=== PATIENT | male | born 1945 | race Caucasian/White ===

== ENCOUNTER → 2020-11-26 | Outpatient (CLI) | payer OTHER ==
[2020-11-27 09:26] LABS: Stool Occult Bld Immuno 1 Negative (NEGATIVE)
== END | disposition home or self-care (01) ==
LOC: LAB 10:30 → LAB SHORT 10:30
PROVIDERS: Family Medicine
DX: Z12.11 Encounter for screening for malignant neoplasm of colon (principal)
CPT/HCPCS: G0328

== ENCOUNTER → 2022-05-25 | Outpatient (CLI) | payer OTHER ==
[~2022-05-25] MED LIST: Avastin25 MG/ML RIGHTEYE; Carvedilol12.5 MG PO; DOCU100 PO; EYLEA LEFTEYE; LOSARTAN POTAS100 M1 PO; MELA3 PO; MULVITA PO; NEURONTIN600 MG PO; NITR.4SL SL; Norco 5-325 Ta1 EACH PO; PRESERVISION A1 EAC2 PO; Preservision S1 EACH PO; VITAMIN D325 MC3 PO
[2022-05-25 11:52] LABS: Hematocrit 28.2 % (37.0-53.0); Hemoglobin 8.1 g/dL (13.5-17.5); Mean Corpuscular HGB Conc 28.7 g/dL (31.5-36.5); Mean Corpuscular Volume 94 fL (80-100); NRBC ABSOLUTE 0.37 K/mm3 (0.00-0.02); NRBC Auto 16.7 /100 WBC (0.0-0.2); RDW Coefficient Variation 17.9 % (11.7-14.2); RDW Standard Deviation 59.1 fL (35.1-46.3); White Blood Cell Count 2.21 K/mm3 (4.00-11.30)
[2022-05-25 11:58] LABS: Platelet Count 7 K/mm3 (150-400)
[2022-05-25 12:45] LABS: BAND PERCENT MAN 1 % (0-8); BASOPHILS PERCENT MAN 0 % (0-2); BLASTS PERCENT MAN 1 % (0-0); EOSINOPHILS PERCENT MAN 0 % (0-6); LYMPHOCYTES % ATYPICAL MANUAL 1 % (0-0); LYMPHOCYTES ABSOLUTE MAN 1.03 K/mm3 (0.84-5.20); LYMPHOCYTES PERCENT MAN 46 % (21-46); MONOCYTES ABSOLUTE MAN 0.08 K/mm3 (0.16-1.47); MONOCYTES PERCENT MAN 4 % (4-13); NEUTROPHILS ABSOLUTE MAN 1.06 K/mm3 (1.96-9.15); SEG NEUTROPHILS PERCENT MAN 47 % (41-73); TOTAL CELLS COUNTED 100
[2022-05-25 13:01] LABS: Albumin, Blood 3.3 g/dL (3.4-5.0); Bilirubin, Total 0.7 mg/dL (0.1-1.0); Bun/Creatinine Ratio 18.4 (12.0-20.0); Calcium, Blood 8.6 mg/dL (8.5-10.1); Creatinine, Blood 1.25 mg/dL (0.60-1.20); Globulin, Blood 3.2 g/dL (2.2-4.0); Total Protein, Blood 6.5 g/dL (6.4-8.2)
== END | disposition home or self-care (01) ==
LOC: LAB SHORT 11:14
PROVIDERS: Nurse Practitioner
DX: C92.00 Acute myeloblastic leukemia, not having achieved remission (principal); D63.0 Anemia in neoplastic disease; D69.6 Thrombocytopenia, unspecified
CPT/HCPCS: 80053; 85025

== ENCOUNTER 2022-05-26 11:15 | Day surgery (SDC) | payer OTHER | END 2022-05-26 17:02 | disposition home or self-care (01) | LOC: ATC 11:15 | DX: D69.6 Thrombocytopenia, unspecified (principal); C92.00 Acute myeloblastic leukemia, not having achieved remission | CPT/HCPCS: 36430; 86900; 86901; A9270; J7040; P9053 ==

== ENCOUNTER 2022-05-31 00:40 | Day surgery (SDC) | payer OTHER ==
[2022-05-30 11:09] LABS: Hematocrit 25.8 % (37.0-53.0); Hemoglobin 7.5 g/dL (13.5-17.5); Mean Corpuscular HGB 27.4 pg (26.0-34.0); Mean Corpuscular HGB Conc 29.1 g/dL (31.5-36.5); Mean Corpuscular Volume 94 fL (80-100); NRBC ABSOLUTE 0.29 K/mm3 (0.00-0.02); NRBC Auto 31.2 /100 WBC (0.0-0.2); RDW Coefficient Variation 18.5 % (11.7-14.2); RDW Standard Deviation 61.1 fL (35.1-46.3); Red Blood Cell Count 2.74 M/mm3 (4.30-5.90)
[2022-05-30 11:20] LABS: White Blood Cell Count 0.93 K/mm3 (4.00-11.30)
[2022-05-30 11:21] LABS: Platelet Count 10 K/mm3 (150-400)
[2022-05-30 11:35] LABS: Albumin, Blood 3.1 g/dL (3.4-5.0); Albumin/Globulin Ratio 1.1 (0.8-1.8); Bilirubin, Total 0.7 mg/dL (0.1-1.0); Calcium, Blood 8.6 mg/dL (8.5-10.1); Creatinine, Blood 1.19 mg/dL (0.60-1.20); Globulin, Blood 2.8 g/dL (2.2-4.0); Potassium, Blood 4.4 mmol/L (3.5-5.5); Total Protein, Blood 5.9 g/dL (6.4-8.2)
[2022-05-30 11:42] LABS: BASOPHILS PERCENT MAN 0 % (0-2); BLASTS PERCENT MAN 4 % (0-0); EOSINOPHILS PERCENT MAN 0 % (0-6); LYMPHOCYTES ABSOLUTE MAN 0.52 K/mm3 (0.84-5.20); LYMPHOCYTES PERCENT MAN 56 % (21-46); MONOCYTES ABSOLUTE MAN 0.05 K/mm3 (0.16-1.47); MONOCYTES PERCENT MAN 6 % (4-13); NEUTROPHILS ABSOLUTE MAN 0.27 K/mm3 (1.96-9.15); PROMYELOCYTE ABSOLUTE MAN 0.03 K/mm3 (0.00-0.00); PROMYELOCYTE PERCENT MAN 4 % (0-0); SEG NEUTROPHILS PERCENT MAN 30 % (41-73); TOTAL CELLS COUNTED 50
== END 2022-05-31 16:05 | disposition home or self-care (01) ==
LOC: ATC 00:40 → EDSTATUS 09:30 → ATC 16:05
PROVIDERS: Nurse Practitioner
DX: C92.00 Acute myeloblastic leukemia, not having achieved remission (principal); D69.6 Thrombocytopenia, unspecified
CPT/HCPCS: 36415; 80053; 85025; 86900; 86901; A9270; J7040; P9035

== ENCOUNTER 2022-07-06 02:11 | Day surgery (SDC) | payer OTHER ==
[2022-07-06] MEDS ORDERED: LEVOFLOXACIN500 M5 PO (09:53)
[2022-07-06] MEDS ORDERED: ACYC400 PO (09:54)
== END 2022-07-06 11:13 | disposition home or self-care (01) ==
LOC: ATC 02:11
DX: C92.00 Acute myeloblastic leukemia, not having achieved remission (principal); D69.6 Thrombocytopenia, unspecified; I12.9 Hypertensive chronic kidney disease with stage 1 through stage 4 chronic kidney disease, or unspecified chronic kidney disease; N18.32 Chronic kidney disease, stage 3b
CPT/HCPCS: 36430; 86900; 86901; A9270; J7050; P9035

== ENCOUNTER → 2022-08-29 | Outpatient (CLI) | payer OTHER ==
[~2022-08-29] MED LIST changes: +ACYC400 PO; +LEVOFLOXACIN500 M5 PO
[2022-08-29 11:19] LABS: BASOPHILS PERCENT AUTO 0 % (0-2); EOSINOPHILS PERCENT AUTO 0 % (0-6); Hematocrit 32.5 % (37.0-53.0); Hemoglobin 9.3 g/dL (13.5-17.5); IMMATURE GRAN PERCENT AUTO 0 % (0-1); LYMPHOCYTES ABSOLUTE AUTO 0.73 K/mm3 (0.84-5.20); LYMPHOCYTES PERCENT AUTO 72 % (21-46); MONOCYTES ABSOLUTE AUTO 0.04 K/mm3 (0.16-1.47); MONOCYTES PERCENT AUTO 4 % (4-13); Mean Corpuscular HGB 27.4 pg (26.0-34.0); Mean Corpuscular HGB Conc 28.6 g/dL (31.5-36.5); Mean Corpuscular Volume 96 fL (80-100); Mean Platelet Volume 9.2 fL (9.1-12.4); NEUTROPHILS ABSOLUTE AUTO 0.24 K/mm3 (1.96-9.15); NEUTROPHILS PERCENT AUTO 24 % (41-73); Platelet Count 79 K/mm3 (150-400); RDW Coefficient Variation 19.6 % (11.7-14.2); RDW Standard Deviation 68.7 fL (35.1-46.3); White Blood Cell Count 1.01 K/mm3 (4.00-11.30)
== END ==
LOC: LAB 10:28 → LAB SHORT 10:28
PROVIDERS: Internal Medicine Hematology & Oncology
DX: C92.00 Acute myeloblastic leukemia, not having achieved remission (principal)
CPT/HCPCS: 85025

== ENCOUNTER 2023-06-17 15:03 | Emergency (ER) | payer OTHER ==
[~2023-06-17] VITALS: Ht 175.3 cm; Wt 86.2 kg
[2023-06-17 15:40] LABS: Hematocrit 23.5 % (37.0-53.0); Hemoglobin 7.6 g/dL (13.5-17.5); Mean Corpuscular HGB 32.8 pg (26.0-34.0); Mean Corpuscular HGB Conc 32.3 g/dL (31.5-36.5); Mean Corpuscular Volume 101 fL (80-100); NRBC ABSOLUTE 0.02 K/mm3 (0.00-0.02); NRBC Auto 2.2 /100 WBC (0.0-0.2); RDW Coefficient Variation 15.9 % (11.7-14.2); RDW Standard Deviation 58.4 fL (35.1-46.3); Red Blood Cell Count 2.32 M/mm3 (4.30-5.90)
[2023-06-17 15:45] LABS: Platelet Count 14 K/mm3 (150-400); White Blood Cell Count 0.93 K/mm3 (4.00-11.30)
[2023-06-17 15:58] LABS: BASOPHILS PERCENT MAN 0 % (0-2); BLASTS PERCENT MAN 2 % (0-0); EOSINOPHILS PERCENT MAN 0 % (0-6); LYMPHOCYTES % ATYPICAL MANUAL 2 % (0-0); LYMPHOCYTES ABSOLUTE MAN 0.76 K/mm3 (0.84-5.20); LYMPHOCYTES PERCENT MAN 80 % (21-46); MONOCYTES ABSOLUTE MAN 0.01 K/mm3 (0.16-1.47); MONOCYTES PERCENT MAN 2 % (4-13); NEUTROPHILS ABSOLUTE MAN 0.13 K/mm3 (1.96-9.15); SEG NEUTROPHILS PERCENT MAN 14 % (41-73); TOTAL CELLS COUNTED 50
[2023-06-17 16:03] LABS: Albumin, Blood 3.4 g/dL (3.4-5.0); Albumin/Globulin Ratio 1.2 (0.8-1.8); Bun/Creatinine Ratio 19.8 (12.0-20.0); Calcium, Blood 8.2 mg/dL (8.5-10.1); Creatinine, Blood 1.11 mg/dL (0.60-1.20); Globulin, Blood 2.9 g/dL (2.2-4.0); Potassium, Blood 4.3 mmol/L (3.5-5.5); Total Protein, Blood 6.3 g/dL (6.4-8.2)
[2023-06-17] MEDS ORDERED: NS 1,000 ML IV SCH (18:40)
[2023-06-17] MEDS ORDERED: Acetaminophen 500 MG Tab PO ONE (19:00)
[2023-06-18 01:15] VITALS: BP 144/68
== END 2023-06-18 01:21 | disposition home or self-care (01) ==
LOC: ER 15:03
PROVIDERS: Physician Assistant
DX: D64.9 Anemia, unspecified (principal); D61.818 Other pancytopenia; I10 Essential (primary) hypertension; E78.5 Hyperlipidemia, unspecified; J44.9 Chronic obstructive pulmonary disease, unspecified; Z79.899 Other long term (current) drug therapy; Z88.0 Allergy status to penicillin
CPT/HCPCS: 36430; 71046; 80053; 83880; 84484; 85025; 86850; 86900; 86901; 86923; 93005; 93010; 96360; 99285-25; A9270; J7030; P9016

== ENCOUNTER 2023-06-20 08:36 | Emergency (ER) | payer OTHER ==
[~2023-06-20] VITALS: Ht 172.7 cm; Wt 86.2 kg
[2023-06-20 09:42] VITALS: BP 146/88
[2023-06-20 10:12] LABS: Hematocrit 25.9 % (37.0-53.0); Hemoglobin 8.5 g/dL (13.5-17.5); Mean Corpuscular HGB 30.8 pg (26.0-34.0); Mean Corpuscular HGB Conc 32.8 g/dL (31.5-36.5); NRBC ABSOLUTE 0.02 K/mm3 (0.00-0.02); NRBC Auto 2.8 /100 WBC (0.0-0.2); RDW Standard Deviation 57.5 fL (35.1-46.3); Red Blood Cell Count 2.76 M/mm3 (4.30-5.90)
[2023-06-20 10:17] LABS: Mean Corpuscular Volume 94 fL (80-100)
[2023-06-20 10:19] LABS: White Blood Cell Count 0.71 K/mm3 (4.00-11.30)
[2023-06-20 10:20] LABS: Platelet Count 3 K/mm3 (150-400)
[2023-06-20 10:30] LABS: Albumin, Blood 3.3 g/dL (3.4-5.0); Albumin/Globulin Ratio 1.1 (0.8-1.8); Bilirubin, Total 1.1 mg/dL (0.1-1.0); Bun/Creatinine Ratio 13.7 (12.0-20.0); Calcium, Blood 8.6 mg/dL (8.5-10.1); Creatinine, Blood 1.17 mg/dL (0.60-1.20); Potassium, Blood 4.2 mmol/L (3.5-5.5); Total Protein, Blood 6.3 g/dL (6.4-8.2)
[2023-06-20 10:46] LABS: BASOPHILS PERCENT MAN 0 % (0-2); BLASTS PERCENT MAN 16 % (0-0); EOSINOPHILS PERCENT MAN 0 % (0-6); LYMPHOCYTES % ATYPICAL MANUAL 8 % (0-0); LYMPHOCYTES ABSOLUTE MAN 0.56 K/mm3 (0.84-5.20); LYMPHOCYTES PERCENT MAN 72 % (21-46); MONOCYTES PERCENT MAN 0 % (4-13); NEUTROPHILS ABSOLUTE MAN 0.02 K/mm3 (1.96-9.15); SEG NEUTROPHILS PERCENT MAN 4 % (41-73); TOTAL CELLS COUNTED 25
[2023-06-20 10:55] LABS: Influenza A, PCR NEGATIVE (NEGATIVE); Influenza B, PCR NEGATIVE (NEGATIVE); Resp Syncytial Virus, PCR NEGATIVE (NEGATIVE); SARS-Cov-2 (COVID-19) PCR, MMC NEGATIVE (NEGATIVE)
[2023-06-20] MEDS ORDERED: Levaquin750 MG PO (11:48)
== END 2023-06-20 12:04 | disposition home or self-care (01) ==
LOC: ER 08:36
PROVIDERS: Physician Assistant
DX: D70.9 Neutropenia, unspecified (principal); R50.81 Fever presenting with conditions classified elsewhere; C92.00 Acute myeloblastic leukemia, not having achieved remission; I10 Essential (primary) hypertension; E78.5 Hyperlipidemia, unspecified; J44.9 Chronic obstructive pulmonary disease, unspecified; Z88.0 Allergy status to penicillin; Z79.899 Other long term (current) drug therapy
CPT/HCPCS: 0241U; 80053; 85025; 99283

== ENCOUNTER 2023-06-23 02:26 | Day surgery (SDC) | payer OTHER ==
[2023-06-22 13:44] LABS: Hematocrit 23.2 % (37.0-53.0); Hemoglobin 7.7 g/dL (13.5-17.5); Mean Corpuscular HGB 31.2 pg (26.0-34.0); Mean Corpuscular HGB Conc 33.2 g/dL (31.5-36.5); Mean Corpuscular Volume 94 fL (80-100); NRBC ABSOLUTE 0.04 K/mm3 (0.00-0.02); NRBC Auto 3.4 /100 WBC (0.0-0.2); RDW Coefficient Variation 16.3 % (11.7-14.2); RDW Standard Deviation 56.2 fL (35.1-46.3); Red Blood Cell Count 2.47 M/mm3 (4.30-5.90); White Blood Cell Count 1.16 K/mm3 (4.00-11.30)
[2023-06-22 13:50] LABS: Albumin, Blood 3.1 g/dL (3.4-5.0); Bilirubin, Total 1.5 mg/dL (0.1-1.0); Bun/Creatinine Ratio 16.7 (12.0-20.0); Calcium, Blood 8.4 mg/dL (8.5-10.1); Creatinine, Blood 1.44 mg/dL (0.60-1.20); Potassium, Blood 4.4 mmol/L (3.5-5.5); Total Protein, Blood 6.1 g/dL (6.4-8.2)
[2023-06-22 13:51] LABS: Platelet Count 3 K/mm3 (150-400)
[2023-06-22 14:16] LABS: BASOPHILS PERCENT MAN 0 % (0-2); EOSINOPHILS PERCENT MAN 0 % (0-6); LYMPHOCYTES % ATYPICAL MANUAL 8 % (0-0); LYMPHOCYTES ABSOLUTE MAN 1.02 K/mm3 (0.84-5.20); LYMPHOCYTES PERCENT MAN 80 % (21-46); MONOCYTES ABSOLUTE MAN 0.09 K/mm3 (0.16-1.47); MONOCYTES PERCENT MAN 8 % (4-13); NEUTROPHILS ABSOLUTE MAN 0.04 K/mm3 (1.96-9.15); SEG NEUTROPHILS PERCENT MAN 4 % (41-73); TOTAL CELLS COUNTED 50
[~2023-06-23 02:26] MED LIST changes: +Levaquin750 MG PO
== END 2023-06-23 23:49 | disposition home or self-care (01) ==
LOC: ATC 02:26 → EDSTATUS 06-05 12:45 → LAB FUT 06-05 12:45
PROVIDERS: Internal Medicine Hematology & Oncology
DX: C92.00 Acute myeloblastic leukemia, not having achieved remission (principal); D69.6 Thrombocytopenia, unspecified; I12.9 Hypertensive chronic kidney disease with stage 1 through stage 4 chronic kidney disease, or unspecified chronic kidney disease; N18.9 Chronic kidney disease, unspecified; Z87.891 Personal history of nicotine dependence
CPT/HCPCS: 36415; 80053; 85025; 86850; 86900; 86901; 86923